=== PATIENT | male | born 1985 | race Hispanic/Latino ===

== ENCOUNTER 2020-11-04 15:25 | Inpatient (IN) | payer BC ==
--- NOTE | 2020-11-04 17:24 | RAD REPORT ---
EXAM DESCRIPTION: Jose Single View11/04/2020 5:08 pm CLINICAL HISTORY: sob COMPARISON: none FINDINGS: The lungs appear clear of acute infiltrate. The heart is normal size IMPRESSION: No acute abnormalities displayed
[2020-11-04] MEDS ORDERED: VANCOMYCIN/NS 1 gm 1 GM/250 ML BAG IVPB ONE (17:30)
[2020-11-04] MEDS ORDERED: NA CHLORIDE 0.9% 3,000 ML ONE (17:50)
[2020-11-04] MEDS ORDERED: CEFEPIME/SWI 1gm 10 ML ONE (17:50)
[2020-11-04] MEDS ORDERED: NA CHLORIDE 0.9% 500 ML ONE (17:50)
[2020-11-04 17:58] LABS: ALT/SGPT 54 U/L (12-78); AST/SGOT 73 U/L (15-37); Alkaline Phosphatase 62 U/L (45-117); BUN Blood Urea Nitrogen 15 mg/dL (7-18); Bicarbonate 25 mmol/L (21-32); Bilirubin Direct 0.5 mg/dL (0-0.2); Glucose Level 90 mg/dL (74-106); Lipase 389 U/L (73-393); Magnesium 2.9 mg/dL (1.8-2.4); NT PRO-BNP 360 pg/mL (<125); Potassium 3.7 mmol/L (3.5-5.1); Protein, Total 7.9 g/dL (6.4-8.2); Sodium Level 129 mmol/L (136-145); Troponin (Emerg Dept Use Only) < 0.02 ng/mL (0.0-0.045)
[2020-11-04] MEDS ORDERED: CEFEPIME/SWI 1gm 10 ML IVP ONE (18:00)
[2020-11-04 18:14] LABS: Protime INR 1.59
[2020-11-04 18:26] LABS: Basophils % 0.4 % (0-1.3); Hematocrit 34.1 % (39.6-49.0); Lymphocytes % 7.4 % (15.3-44.8); MPV 9.1 fL (7.6-11.3); RBC Red Blood Cell Count 3.96 M/uL (4.33-5.43)
--- NOTE | 2020-11-04 19:37 | RAD REPORT ---
EXAM DESCRIPTION: CT - Abdomen Pelvis W Contrast - 11/04/2020 7:07 pm CLINICAL HISTORY: Abdominal pain COMPARISON: none. TECHNIQUE: Computed axial tomography of the abdomen pelvis was obtained. 100 cc Isovue-300 was admin istered intravenously. Oral contrast was not requested which limits evaluation of bowel. All CT scans are performed using dose optimization technique as appropriate and may include automated exposure control or mA/KV adjustment according to patient size. FINDINGS: Fatty liver Spleen, pancreas, adrenal and kidneys appear unremarkable. There is no evidence of diverticulitis. Postsurgical changes of a ventral hernia repair 20 x 14 x 19 centimeter (cc by AP by trans} mass is present within the left anterior subcutaneous tis sues of the lower abdomen/pelvis. It contains air and fluid consistent with an abscess IMPRESSION: 20 centimeter abscess within the left anterior subcutaneous tissues of the lower abdomen /pelvis
--- NOTE | 2020-11-04 19:58 | ER ---
Nurse's Notes [facility] Name: Rohan Bey Age: 35 yrs Sex: Male : 1985 Arrival Date: 11/04/2020 Time: 15:27 Bed 13 Private MD: Landry Cohen Diagnosis: Severe sepsis without septic shock;Cutaneous abscess of abdominal wall Presentation: 11/04 15:58 Chief complaint: Patient states: Left sided abdominal pain and bloating x 1 week, jl7 denies N/V/D. Coronavirus screen: Client denies travel out of the [place] in the last 14 days. At this time, the client does not indicate any symptoms associated with coronavirus-19. Ebola Screen: No symptoms or risks identified at this time. Initial Sepsis Screen: Does the patient meet any 2 criteria? No. Patient's initial sepsis screen is negative. Does the patient have a suspected source of infection? No. Patient's initial sepsis screen is negative. Risk Assessment: Do you want to hurt yourself or someone else? Patient reports no desire to harm self or others. Onset of symptoms was October 30, 2020. 15:58 Method Of Arrival: Ambulatory [facility] 15:58 Acuity: YAW 3 jl7 Historical: - Allergies: 16:01 No Known Allergies; jl7 - Home Meds: 16:01 None [Active]; jl7 - PMHx: 16:01 None; jl7 - PSHx: 16:01 None; jl7 - Immunization history:: Adult Immunizations not up to date, Client reports having NOT received the Covid vaccine. - Social history:: Smoking status: Patient denies any tobacco usage or history of. Screenin:51 Abuse screen: Denies threats or abuse. Denies injuries from another. Nutritional ld1 screening: No deficits noted. Tuberculosis screening: No symptoms or risk factors identified. Fall Risk None identified. Assessment: 16:51 General: Appears in no apparent distress. uncomfortable, Behavior is calm, cooperative, ld1 appropriate for age. Pain: Complains of pain in left lower quadrant Pain does not radiate. Pain currently is 8 out of 10 on a pain scale. Quality of pain is described as throbbing, Pain began 2-3 days ago. Is continuous. Neuro: Level of Consciousness is awake, alert, obeys commands, Oriented to person, place, time, situation. Cardiovascular: Denies chest pain, Capillary refill < 3 seconds Patient's skin is warm and dry. Rhythm is SVT. Respiratory: Airway is patent Respiratory effort is even, unlabored, Respiratory pattern is regular, symmetrical. GI: Abdomen is distended, obese, Bowel sounds present X 4 quads. Abd is soft Abdomen is tender to palpation in left upper quadrant and left lower quadrant Reports lower abdominal pain. : No signs and/or symptoms were reported regarding the genitourinary system. EENT: No signs and/or symptoms were reported regarding the EENT system. Derm: No signs and/or symptoms reported regarding the dermatologic system. Musculoskeletal: No signs and/or symptoms reported regarding the musculoskeletal system. 18:59 Reassessment: Patient appears in no apparent distress at this time. No changes from ld1 previously documented assessment. Patient and/or family updated on plan of care and expected duration. Pain level reassessed. Patient denies pain at this time. Vital Signs: 15:58 BP 152 / 83; Pulse 142; Resp 15; Temp 99.9; Pulse Ox 98% ; Weight 122.47 kg; Height 5 bp ft. 5 in. (165.10 cm); Pain 10/10; 16:51 BP 127 / 99; Pulse 139; Resp 22; Temp 99.9(O); Pulse Ox 95% on R/A; Weight 122.4 kg; ld1 Height 5 ft. 9 in. (175.26 cm); Pain 8/10; 17:45 BP 126 / 75; Pulse 124; Resp 18; Pulse Ox 96% on R/A; ld1 18:30 BP 123 / 70; Pulse 120; Resp 24; Pulse Ox 97% on R/A; ld1 16:51 Body Mass Index 39.85 (122.40 kg, 175.26 cm) ld1 ED Course: 15:27 Patient arrived in ED. as 15:27 Landry Cohen DO is Private Physician. as 16:01 Triage completed. jl7 16:01 Arm band placed on right wrist. Patient placed in waiting room, Patient notified of jl7 wait time. 16:49 Christiane Fermin, MARY ELLEN is Primary Nurse. ld1 16:51 Patient has correct armband on for positive identification. Placed in gown. Bed in low ld1 position. Call light in reach. Side rails up X2. damper worker on. Pulse ox on. NIBP on. Door closed. Noise minimized. Warm blanket given. 16:51 No provider procedures requiring assistance completed. ld1 16:56 Elton Bland PA is PHCP. jr8 16:56 Kiet Juares MD is Attending Physician. jr8 17:08 XRAY Chest (1 view) In Process Unspecified. EDMS 17:23 Inserted saline lock: 20 gauge in right antecubital area, using aseptic technique. ld1 Blood collected. 18:17 Notified Nurse Practitioner and/or Physician Order Entry Specialist of a critical lab result(s), aa5 Lactate 2.9. 19:07 Abdomen In Process Unspecified. EDMS 19:58 Chava Heller is Hospitalizing Provider. jr8 11/05 04:20 Primary Nurse role handed off by Christiane Fermin RN mw2 07:35 Martine Haney, MARY ELLEN is Primary Nurse. tr6 11/07 07:18 Primary Nurse role handed off by Martine Haney RN eb 08:43 Michael Napoles, MARY ELLEN is Primary Nurse. bp Administered Medications: 11/04 17:32 Drug: NS 0.9% (30 ml/kg) 30 ml/kg Route: IV; Rate: bolus; Site: right antecubital; ld1 20:30 Follow up: Response: No adverse reaction; IV Status: Completed infusion; IV Intake: ld1 3600ml 17:33 Drug: Cefepime 1 grams Route: IVPB; Rate: 200 ml/hr; Infused Over: 30 mins; Site: right ld1 antecubital; 11/05 18:00 Follow up: Response: No adverse reaction; IV Status: Completed infusion; IV Intake: ld1 100ml 11/04 18:00 Drug: vancoMYCIN 1 grams Route: IVPB; Infused Over: 2 hrs; Site: right antecubital; ld1 20:00 Follow up: Response: No adverse reaction; IV Status: Completed infusion; IV Intake: ld1 250ml 11/05 19:17 Not Given (Patient Refused): morphine 4 mg IVP once; RASS on ADMIN: Combtv4, Very ld1 Agttd3, Agttd2, Rstlss1, AlertClm0, Drwsy-1, Lt Sdtn-2, Mod Sdtn-3, Dp Sdtn-4, UnArsble-5 19:17 Not Given (Patient Refused): Zofran (Ondansetron) 4 mg IVP once; over 2 minutes ld1 Intake: 11/04 20:00 IV: 250ml; Total: 250ml. ld1 20:30 IV: 3600ml; Total: 3850ml. ld1 11/05 18:00 IV: 100ml; Total: 3950ml. ld1 Outcome: 11/04 19:58 Decision to Hospitalize by Provider. jr8 11/07 15:00 Patient left the ED. eb Signatures: Dispatcher [employer] EDMS Nany Bey Audri, RN RN aa5 Elton Bland PA PA jr8 Jack Rubin, RN RN jl7 Michael Napoles, RN RN [facility], [place] 2 Rimma Boyer Christiane Fermin RN RN ld1 Martine Haney, RN RN tr6 Corrections: (The following items were deleted from the chart) 11/04 17:38 17:23 CORONAVIRUS+MR.LAB.BRZ drawn and sent. ld1 EDMS 19:07 19:02 In radiology for Abdomen W/ Con+CT.RAD.BRZ. EDMT EDMS 11/07 09:56 11/04 15:58 BP 152 / 83; Pulse 142bpm; Resp 15bpm; Pulse Ox 98%; Temp 99.9F; 122.47 kg; bp Height 5 ft. 5 in.; BMI: 44.9; Pain 10/10; jl7
--- NOTE | 2020-11-04 19:59 | EDPHYS ---
Physician Documentation [facility] Name: Rohan Bey Age: 35 yrs Sex: Male : 1985 Arrival Date: 11/04/2020 Time: 15:27 Bed 13 Private MD: Noel [facility] ED Physician Kiet Juares HPI: 11/04 20:37 This 35 yrs old Male presents to ER via Ambulatory with complaints of jr8 Abdominal Pain, Abdominal Swelling. 20:37 Onset: The symptoms/episode began/occurred gradually, 1 week(s) ago. The symptoms do jr8 not radiate. Associated signs and symptoms: Pertinent positives: constipation, fever. The symptoms are described as dull. Modifying factors: The symptoms are alleviated by nothing, the symptoms are aggravated by movement. Severity of pain: At its worst the pain was moderate in the emergency department the pain is unchanged. The patient has not experienced similar symptoms in the past. The patient has not recently seen a physician. 20:38 This is a 35-year-old male patient who came in with continued abdominal pain and jr8 swelling for 1 week. Stated that he noticed some pain on the left side of his abdomen that has increased in nature. Now having discoloration with moderate pain and swelling. Patient febrile with tachycardia and septic signs upon arrival to emergency room.. Historical: - Allergies: 16:01 No Known Allergies; jl7 - Home Meds: 16:01 None [Active]; jl7 - PMHx: 16:01 None; jl7 - PSHx: 16:01 None; jl7 - Immunization history:: Adult Immunizations not up to date, Client reports having NOT received the Covid vaccine. - Social history:: Smoking status: Patient denies any tobacco usage or history of. ROS: 20:38 Eyes: Negative for injury, pain, redness, and discharge, ENT: Negative for injury, jr8 pain, and discharge, Neck: Negative for injury, pain, and swelling, Cardiovascular: Negative for chest pain, palpitations, and edema, Respiratory: Negative for shortness of breath, cough, wheezing, and pleuritic chest pain, Back: Negative for injury and pain, MS/Extremity: Negative for injury and deformity, Skin: Negative for injury, rash, and discoloration, Neuro: Negative for headache, weakness, numbness, tingling, and seizure. 20:38 Abdomen/GI: Positive for abdominal pain, constipation, abdominal distension, Negative for nausea, vomiting, and diarrhea. Exam: 20:38 Eyes: Pupils equal round and reactive to light, extra-ocular motions intact. Lids and jr8 lashes normal. Conjunctiva and sclera are non-icteric and not injected. Cornea within normal limits. Periorbital areas with no swelling, redness, or edema. ENT: Nares patent. No nasal discharge, no septal abnormalities noted. Tympanic membranes are normal and external auditory canals are clear. Oropharynx with no redness, swelling, or masses, exudates, or evidence of obstruction, uvula midline. Mucous membranes moist. Neck: Trachea midline, no thyromegaly or masses palpated, and no cervical lymphadenopathy. Supple, full range of motion without nuchal rigidity, or vertebral point tenderness. No Meningismus. Back: No spinal tenderness. No costovertebral tenderness. Full range of motion. Skin: Warm, dry with normal turgor. Normal color with no rashes, no lesions, and no evidence of cellulitis. MS/ Extremity: Pulses equal, no cyanosis. Neurovascular intact. Full, normal range of motion. Neuro: Awake and alert, GCS 15, oriented to person, place, time, and situation. Cranial nerves II-XII grossly intact. Motor strength 5/5 in all extremities. Sensory grossly intact. 20:38 Constitutional: The patient appears alert, awake, uncomfortable. 20:38 Cardiovascular: Rate: tachycardic, Rhythm: regular, Pulses: Pulses are 2+ in right radial artery and left radial artery. Heart sounds: normal, normal S1and S2, no S3 or S4, no murmur, no rub, no gallop, Edema: is not appreciated. 20:38 Respiratory: the patient does not display signs of respiratory distress, Respirations: tachypnea, that is mild, Breath sounds: are clear throughout, no bronchial sounds, no decreased breath sounds, no rales, rhonchi, no stridor, no wheezing. 20:38 Abdomen/GI: Inspection: obese She has a large indurated region from the suprapubic midline all the way to the superior anterior iliac crest on the left side up to the mid abdomen. Erythema present with some bruising. Moderate tenderness to palpation with pitting edema, Bowel sounds: active, all quadrants, Palpation: soft, in all quadrants, mass, is not appreciated, rebound tenderness, is not appreciated, voluntary guarding, is not appreciated, involuntary guarding, is not appreciated, no appreciated organomegaly. Vital Signs: 15:58 BP 152 / 83; Pulse 142; Resp 15; Temp 99.9; Pulse Ox 98% ; Weight 122.47 kg; Height 5 bp ft. 5 in. (165.10 cm); Pain 10/10; 16:51 BP 127 / 99; Pulse 139; Resp 22; Temp 99.9(O); Pulse Ox 95% on R/A; Weight 122.4 kg; ld1 Height 5 ft. 9 in. (175.26 cm); Pain 8/10; 17:45 BP 126 / 75; Pulse 124; Resp 18; Pulse Ox 96% on R/A; ld1 18:30 BP 123 / 70; Pulse 120; Resp 24; Pulse Ox 97% on R/A; ld1 16:51 Body Mass Index 39.85 (122.40 kg, 175.26 cm) ld1 MDM: 16:57 Patient medically screened. jr8 20:49 Data reviewed: vital signs, nurses notes, lab test result(s), EKG, radiologic studies, jr8 CT scan. Data interpreted: Pulse oximetry: on room air is 97 %. Counseling: I had a detailed discussion with the patient and/or guardian regarding: the historical points, exam findings, and any diagnostic results supporting the discharge/admit diagnosis, lab results, radiology results, the need for further work-up and treatment in the hospital. ED course: Dr. Sarmiento consulted and will see patient in the morning for surgery. patient mated to medicine at this time. 11/04 16:57 Order name: Basic Metabolic Panel; Complete Time: 18:39 [facility] 11/04 16:57 Order name: CBC with Diff; Complete Time: 18:39 [facility] 11/04 16:57 Order name: LFT's; Complete Time: 18:39 [facility] 11/04 16:57 Order name: Magnesium; Complete Time: 18:39 11/04 16:57 Order name: NT PRO-BNP; Complete Time: 18:39 [facility] 11/04 16:57 Order name: PT-INR; Complete Time: 18:39 [facility] 11/04 16:57 Order name: Troponin (emerg Dept Use Only); Complete Time: 18:39 jr8 11/04 16:57 Order name: Lipase; Complete Time: 18:39 jr8 11/04 17:07 Order name: Blood Culture Adult (2) ld1 11/04 17:07 Order name: Lactate; Complete Time: 18:39 ld1 11/04 17:10 Order name: Procalcitonin; Complete Time: 18:39 ld1 11/04 20:02 Order name: SARS-COV-2 RT PCR; Complete Time: 20:16 EDMS 11/04 21:08 Order name: Lactate Sepsis 2 HR Follow-up; Complete Time: 21:32 EDMS 11/05 03:39 Order name: Lactate EDMS 11/05 03:40 Order name: CBC with Automated Diff EDMS 11/05 04:01 Order name: Manual Differential EDMS 11/05 04:18 Order name: Phosphorus EDMS 11/05 04:18 Order name: Lipid Profile EDMS 11/05 04:18 Order name: C-Reactive Protein EDMS 11/05 04:18 Order name: T4 Free EDMS 11/05 04:18 Order name: Magnesium EDMS 11/05 04:18 Order name: Thyroid Stimulating Hormone EDMS 11/05 04:18 Order name: Transferrin Sat/Iron Binding EDMS 11/05 04:18 Order name: Ferritin EDMS 11/05 04:18 Order name: Folic Acid, (Folate) EDMS 11/05 04:18 Order name: Vitamin B12 Level EDMS 11/05 06:45 Order name: Lactate Sepsis 2 HR Follow-up EDMS 11/05 12:46 Order name: Glucose, Ancillary Testing EDMS 11/06 06:58 Order name: CBC with Automated Diff EDMS 11/04 16:57 Order name: XRAY Chest (1 view); Complete Time: 18:39 jr8 11/04 16:57 Order name: EKG; Complete Time: 16:57 jr8 11/04 16:57 Order name: Cardiac monitoring; Complete Time: 17:03 jr8 11/04 16:57 Order name: EKG - Nurse/Tech; Complete Time: 17:03 jr8 11/04 16:57 Order name: IV Saline Lock; Complete Time: 17:23 jr8 11/04 16:57 Order name: Labs collected and sent; Complete Time: 17:23 jr8 11/04 16:57 Order name: O2 Per Protocol; Complete Time: 17:03 jr8 11/04 16:57 Order name: O2 Sat Monitoring; Complete Time: 17:03 jr8 11/04 19:07 Order name: Abdomen ; Complete Time: 19:41 EDMS 11/04 20:10 Order name: CONS Physician Consult EDMS 11/06 07:04 Order name: Basic Metabolic Panel EDMS 11/06 07:04 Order name: Phosphorus EDMS 11/06 07:04 Order name: Magnesium EDMS 11/06 09:28 Order name: Wound Culture EDMS 11/06 09:35 Order name: Tissue Culture EDMS 11/06 13:19 Order name: Glucose, Ancillary Testing EDMS 11/06 20:11 Order name: Vancomycin Level Trough EDMS 11/07 05:00 Order name: CBC with Automated Diff EDMS 11/07 05:02 Order name: Basic Metabolic Panel EDMS 11/07 05:02 Order name: Magnesium EDMS 11/07 05:38 Order name: Urinalysis EDMS Administered Medications: 17:32 Drug: NS 0.9% (30 ml/kg) 30 ml/kg Route: IV; Rate: bolus; Site: right antecubital; ld1 20:30 Follow up: Response: No adverse reaction; IV Status: Completed infusion; IV Intake: ld1 3600ml 17:33 Drug: Cefepime 1 grams Route: IVPB; Rate: 200 ml/hr; Infused Over: 30 mins; Site: right ld1 antecubital; 11/05 18:00 Follow up: Response: No adverse reaction; IV Status: Completed infusion; IV Intake: ld1 100ml 11/04 18:00 Drug: vancoMYCIN 1 grams Route: IVPB; Infused Over: 2 hrs; Site: right antecubital; ld1 20:00 Follow up: Response: No adverse reaction; IV Status: Completed infusion; IV Intake: ld1 250ml 11/05 19:17 Not Given (Patient Refused): morphine 4 mg IVP once; RASS on ADMIN: Combtv4, Very ld1 Agttd3, Agttd2, Rstlss1, AlertClm0, Drwsy-1, Lt Sdtn-2, Mod Sdtn-3, Dp Sdtn-4, UnArsble-5 19:17 Not Given (Patient Refused): Zofran (Ondansetron) 4 mg IVP once; over 2 minutes ld1 Disposition Summary: 11/04/20 19:58 Hospitalization Ordered Hospitalization Status: Inpatient Admission jr8 Provider: Chava Heller jr8 Condition: Fair jr8 Problem: new jr8 Symptoms: have improved jr8 Bed/Room Type: [place] [address] Location: Telemetry/MedSurg (Inpatient)(11/07/20 12:25) dw Room Assignment: 430(11/07/20 12:25) dw Diagnosis - Severe sepsis without septic shock jr8 - Cutaneous abscess of abdominal wall jr8 Forms: - Medication Reconciliation Form jr8 - SBAR form jr8 Signatures: Dispatcher [employer] EDMS Christie Abreu RN RN dw Elton Bland PA PA jr8 Karma Zhang RN RN tl1 Jack Rubin RN RN jl7 Christiane Fermin RN RN ld1 Corrections: (The following items were deleted from the chart) 11/04 17:38 17:07 CORONAVIRUS+MR.LAB.BRZ ordered. EDMS EDMS 19:07 18:41 Abdomen W/ Con+CT.RAD.BRZ ordered. EDMS EDMS 19:58 19:44 NPO ordered. 8 jr8 20:33 19:58 Telemetry/MedSurg (Inpatient) [facility] tl1 20:33 19:58 jr8 tl1 11/07 12:25 11/04 20:33 [facility] ER HOLD tl1 dw 11/07 12:25 11/04 20:33 ERHOLD- tl1 dw
--- NOTE | 2020-11-04 21:11 | P.HP ---
Certification for Inpatient Patient admitted to: Inpatient With expected LOS: <2 Midnights Patient will require the following post-hospital care: None Practitioner: I am a practitioner with admitting privileges, knowledge of patient current condition, hospital course, and medical plan of care. Services: Services provided to patient in accordance with Admission requirements found in Title 42 Section 412.3 of the Code of Federal Regulations Patient History Date of Service: 11/04/20 Reason for admission: abdominal abscess History of Present Illness: Mr. Bey is a 35 yo M who reports a few weeks of left-sided abdominal pain, bloating and irritation. Pain worse with movement, relieved with laying flat. Reports fever, anorexia. Denies nausea and vomiting. CT shows 20cm abscess within the left anterior subcutaneous tissues of lower abdomen and pelvis. WBC 13.6. H/H 11.3. Na 129, Cl 95. Lactate 2.9. Dbili 0.5, AST 73. Albumin 2.0. procal 3.5. - Past Medical/Surgical History Has patient received pneumonia vaccine in the past: No Diabetic: No Past Medical History: Patient denies medical history -: hernia repair -: knee surgery - Family History Father -: Diabetes - Social History Smoking Status: Never smoker Alcohol use: No CD- Drugs: No Caffeine use: Yes Place of Residence: Home Review of Systems 10-point ROS is otherwise unremarkable General: Fever Gastrointestinal: Abdominal Pain Physical Examination - Physical Exam General: Alert, In no apparent distress HEENT: Atraumatic, PERRLA, Mucous membr. moist/pink, EOMI, Sclerae nonicteric Neck: Supple, 2+ carotid pulse no bruit, No LAD, Without JVD or thyroid abnormality Respiratory: Clear to auscultation bilaterally, Normal air movement Cardiovascular: Normal S1 S2, Irregular heart rate/rhythm (tachycardic ) Capillary refill: <2 Seconds Gastrointestinal: Normal bowel sounds, Soft and benign, Non-distended, No ascites, No tenderness, No rebound, No guarding Musculoskeletal: No tenderness Integumentary: No rashes Neurological: Normal gait, Normal speech, Normal strength at 5/5 x4 extr, Normal tone, Normal affect Lymphatics: No axilla or inguinal lymphadenopathy - Studies Laboratory Data (last 24 hrs) 11/04/20 17:18: PT 18.4 H, INR 1.59 11/04/20 17:18: WBC 13.60 H, Hgb 11.3 L, Hct 34.1 L, Plt Count 415 H 11/04/20 17:18: Sodium 129 L, Potassium 3.7, BUN 15, Creatinine 1.02, Glucose 90, Magnesium 2.9 H, Total Bilirubin 1.0, AST 73 H, ALT 54, Alkaline Phosphatase 62, Lipase 389 Assessment and Plan - Problems (Diagnosis) (1) Abdominal abscess Current Visit: Yes Status: Acute (2) Obesity (BMI 35.0-39.9 without comorbidity) Current Visit: Yes Status: Chronic - Plan surgery consulted, plan to go to OR in the AM NPO at midnight, continue IVF hydration and IV antibiotics tylenol prn for fever anemia workup pending dietitian consulted DVt ppx Discharge Plan: Home Plan to discharge in: 48 Hours - Advance Directives Does patient have a Living Will: No Does patient have a Durable POA for Healthcare: No - Code Status/Comfort Care Code Status Assessed: Yes (full code ) Critical Care: No Time Spent Managing Pts Care (In Minutes): 70
[2020-11-05] MEDS ORDERED: ACETAMINOPHEN 500 MG TAB PO PRN (01:26)
[2020-11-05] MEDS ORDERED: NA CHLORIDE 0.9% 500 ML IV ONE (01:26)
[2020-11-05] MEDS ORDERED: ONDANSETRON 4 MG/2 ML VIAL IV PRN (01:26)
[2020-11-05] MEDS ORDERED: MORPHINE 2 MG/ML SYR IV PRN (01:26)
[2020-11-05] MEDS: NA CHLORIDE 0.9% 1,000 ML IV SCH ×3 (01:26→21:26)
[2020-11-05 03:32] LABS: Basophils % 0.2 % (0-1.3); Hematocrit 26.7 % (39.6-49.0); Lymphocytes % 9.7 % (15.3-44.8); MPV 8.3 fL (7.6-11.3); RBC Red Blood Cell Count 3.11 M/uL (4.33-5.43)
[2020-11-05 04:01] LABS: Blood Morphology Comment NOT SEEN (NOT SEEN); Platelet Estimate ADEQ
[2020-11-05] MEDS ORDERED: NA CHLORIDE 0.9% 1,000 ML ONE ×3 (04:04→17:12)
[2020-11-05 04:17] LABS: Ferritin 1985.7 ng/mL (26-388); Folic Acid, (Folate) 6.6 ng/mL (3.1-17.5); Magnesium 2.6 mg/dL (1.8-2.4); Phosphorus 2.5 mg/dL (2.5-4.9); Thyroid Stimulating Hormone 1.62 uIU/mL (0.360-3.740)
[2020-11-05] MEDS ORDERED: Pharmacy Consult 1 EA XX PRN (06:00)
[2020-11-05] MEDS: CEFEPIME 1 GM/10 ML SYR IV SCH ×3 (08:23→21:00)
[2020-11-05] MEDS ORDERED: CEFEPIME/SWI 1gm 10 ML ONE ×2 (08:43→21:28)
[2020-11-05] MEDS ORDERED: BUPIVACAINE 0.5% Inj,MDV 50 mL VIAL ONE (11:04)
[2020-11-05] MEDS ORDERED: FENTANYL CITR 100 MCG/2 ML ONE ×2 (11:05→11:48)
[2020-11-05] MEDS ORDERED: LIDOCAINE 2% MPF 5 ML VIAL ONE (11:05)
[2020-11-05] MEDS ORDERED: dexAMETHasone 10 MG/ML VIAL ONE ×2 (11:05→11:25)
[2020-11-05] MEDS ORDERED: propofoL 200 MG/20 ML VIAL IV ONE (11:05)
[2020-11-05] MEDS ORDERED: ONDANSETRON 4 MG/2 ML VIAL ONE (11:06)
[2020-11-05] MEDS ORDERED: MIDAZOLAM HCL 2 MG/2 ML INJ ONE (11:06)
[2020-11-05] MEDS ORDERED: KETOROLAC 30 MG/ML INJ ONE (11:06)
[2020-11-05] MEDS: VANCOMYCIN 2 GM in NA CHLORIDE 0.9% 500 ML IVPB SCH ×2 (11:28→21:00)
[2020-11-05] MEDS: BUPIVACAINE 0.25% PF 30 ML VIAL ONE (11:28)
[2020-11-05] MEDS ORDERED: NS 0.9% VIAL 10 ML ONE (11:29)
--- NOTE | 2020-11-05 12:01 | P.OP ---
Poultry Helper: Teresa AREVALO Preoperative diagnosis: Abdominal Wall Abscess Postoperative diagnosis: same--Necrotizing Primary procedure: I and D and Debridement Necrotizing Abscess Abd Wall and Pulse Irrigation Anesthesia: General Estimated blood loss: min Specimen: pus and tissue Findings: as above Complications: None Transferred to: Recovery Room Condition: Good
[2020-11-05] MEDS: NA CHLORIDE 0.9% 1,000 ML ONE ×2 (12:08→12:25)
[2020-11-05] MEDS ORDERED: HYDROMORPHONE HCL 1 MG/ML INJ IV PRN (12:12)
[2020-11-05] MEDS ORDERED: HYDROCODONE/APAP 7.5/325 MG TAB PO PRN (12:12)
--- NOTE | 2020-11-05 13:36 | OP ---
Date of Procedure: 11/05/2020 Surgeon: Eulogio Sarmiento MD Tour Guide: IRINA Butler. Preoperative Diagnosis: Abdominal wall abscess. Postoperative Diagnosis: Abdominal wall abscess with necrotizing component. Procedure Performed: Incision, drainage and debridement of necrotizing abdominal wall abscess with p ulse irrigation. Estimated Blood Loss: Minimal. Specimen: Pus and necrotic tissue. Finding: As above. Anesthesia: General. Disposition: The patient tolerated the procedure in stable condition and taken to Recovery in good g eneral condition. Please note, the patient had a nerve block done postprocedure for postop pain control. Procedure In Detail: The patient was brought to the OR and placed in supine position. General anest hesia begun. The patient was prepped and draped in the usual sterile fashion. Then, Marcaine 0.5% i nfiltrated over the most fluctuant part of the abscess. Then, a #20 blade was used to make an approx imately a 10 cm incision. Subcutaneous tissue divided and deep to the subcutaneous tissue anterior t o the peritoneal surface, there was a large abscess cavity encountered with air and pus present, whic h was aspirated. Pulse irrigation was utilized. Cultures were done. The necrotic tissue was debrid ed. Wound was irrigated with 2 L of saline. First 2 L had 10 mL of Betadine in it and then second 2 L and no Betadine in it and the pulse irrigation loosened up a lot of necrotic tissue, which was rem marcin and debrided. Bleeding was controlled with cautery and then wet-to-dry, normal saline dressing changes applied. Three Kerlix were tied to each other to pack the entire volume of wound that we cou ld. After the sterile dressing was applied, the patient had a block done and then the patient was ta bruno to Recovery in good general condition. Please note, the patient will have a planned return to [facility] OR tomorrow for dressing change and possible secondary closure of the wound over drains. I will ev aluate that tomorrow based on the patient's condition. /MODL Voice ID: [id number] Report ID: [id number]
--- NOTE | 2020-11-05 15:58 | PREOPCON ---
Date of Consultation: 11/04/2020 Reason For Consultation: Abdominal wall abscess. History Of Present Illness: The patient is a 35-year-old gentleman who comes in with couple of weeks history of left-sided abdominal pain associated with bloating and irritation, relieved when lying fl at, worse with movement. He has had fever, anorexia. No nausea or vomiting. He recovered from COVI D at the end of September and since then, he has had this developing. No sore throat, runny nose, cough, headaches, or dizziness. No chest pain. Review of Systems: Otherwise unremarkable. Past Medical History: Negative. Past Surgical History: Hernia repair and knee surgery. Social History: The patient does not smoke or drink alcohol. Family History: Significant for father with diabetes. Physical Examination: Vital Signs: Significant for heart rate of 112, temperature is 99.6, otherwise, they are stable. General: He is awake, alert, oriented x3. Head and Neck: Cranial nerves 2 through 12 grossly within normal limits. No neck masses. No JVD. Throat clear. Neck is supple. Chest: Clear. Heart: S1, S2. Abdomen: Soft. Distended on the left side. There is fullness on the left side from above the umbil icus to below, approximately three-quarter of the abdominal wall where there appears to be fluctuance present. There is mild erythema. There is tenderness. There is warmth. Extremity: Adequately perfused. Nontender. Neuro: Nonfocal. Laboratory Data: White count on admission was 13.6, with a left shift. Band are 14. He had a CT of the abdomen and pelvis that was done, which showed 20 x 14 x 9 cm abscess in the left anterior subcu taneous tissue that contains air and fluid consistent with an abscess. Assessment: Abscess, left abdominal wall. Plan: The patient is following the septic protocol, aggressive fluid hydration, broad-spectrum antib iotics, and then the patient will go to the OR for incision, drainage, and debridement. The patient understands the risks, benefits, and alternatives and agrees to procedure. /MODL Voice ID: [id number] Report ID: [id number]
--- NOTE | 2020-11-05 19:43 | P.PN ---
Subjective Date of Service: 11/05/20 Chief Complaint: abdominal abscess Status post incision and debridement of necrotizing abdominal wall abscess. Patient denies any complain of the moment. Patient reports occasional nonproductive cough. He denies shortness of breath. Physical Examination - Vital Signs Temperature: 99.9 F Blood Pressure: 115/76 Pulse: 96 Respirations: 18 Pulse Ox (%): 97 - Physical Exam General: Alert, In no apparent distress, Oriented x3, Obese HEENT: Mucous membr. moist/pink Neck: JVD not distended Respiratory: Other (Nonlabored breathing) Cardiovascular: No edema, Regular rate/rhythm, Normal S1 S2 Gastrointestinal: Soft and benign, Non-distended (Dressed surgical wound on the anterior) Musculoskeletal: No swelling, No tenderness Integumentary: No rashes, No erythema Neurological: Normal strength at 5/5 x4 extr Assessment And Plan - Current Problems (Diagnosis) (1) COVID-19 virus infection Current Visit: Yes Status: Acute (2) Abdominal abscess Current Visit: Yes Status: Acute (3) Obesity (BMI 35.0-39.9 without comorbidity) Current Visit: Yes Status: Chronic - Plan Continue IV cefepime and vancomycin. Status post I and D. Follow deep tissue wound culture. Monitor CBC and blood chemistry. Watch for hyperglycemia and optimize blood sugar levels. Patient is asymptomatic from COVID 19.
[2020-11-05] MEDS ORDERED: VANCOMYCIN 1 GM/VIAL ONE (21:27)
[2020-11-05] MEDS ORDERED: NA CHLORIDE 0.9% 250 ML ONE (21:27)
[2020-11-06] MEDS ORDERED: NA CHLORIDE 0.9% 1,000 ML ONE (04:35)
[2020-11-06 06:52] LABS: Basophils % 0.4 % (0-1.3); Hematocrit 27.3 % (39.6-49.0); Lymphocytes % 8.8 % (15.3-44.8); MPV 8.6 fL (7.6-11.3); RBC Red Blood Cell Count 3.12 M/uL (4.33-5.43)
[2020-11-06 07:02] LABS: BUN Blood Urea Nitrogen 16 mg/dL (7-18); Bicarbonate 25 mmol/L (21-32); Glucose Level 184 mg/dL (74-106); Magnesium 2.7 mg/dL (1.8-2.4); Phosphorus 2.6 mg/dL (2.5-4.9); Sodium Level 138 mmol/L (136-145)
[2020-11-06] MEDS: NA CHLORIDE 0.9% 1,000 ML IV SCH ×2 (07:26→17:26)
[2020-11-06] MEDS: BUPIVACAINE 0.25% PF 30 ML VIAL ONE (07:52)
[2020-11-06] MEDS ORDERED: BUPIVACAINE 0.5% PF 10 ML VIAL ONE (08:14)
[2020-11-06] MEDS: VANCOMYCIN 2 GM in NA CHLORIDE 0.9% 500 ML IVPB SCH ×2 (09:00→20:55)
[2020-11-06] MEDS: CEFEPIME/SWI 1gm 10 ML IV SCH ×2 (09:00→20:55)
[2020-11-06] MEDS ORDERED: FENTANYL CITR 100 MCG/2 ML ONE ×2 (09:06→09:43)
[2020-11-06] MEDS ORDERED: propofoL 200 MG/20 ML VIAL IV ONE (09:07)
[2020-11-06] MEDS ORDERED: LIDOCAINE 2% MPF 5 ML VIAL ONE (09:08)
[2020-11-06] MEDS ORDERED: MIDAZOLAM HCL 2 MG/2 ML INJ ONE (09:08)
[2020-11-06] MEDS ORDERED: ONDANSETRON 4 MG/2 ML VIAL ONE (09:11)
--- NOTE | 2020-11-06 10:08 | P.OP ---
Custodial Services Manager: Anjum ROJAS Preoperative diagnosis: Infected abdominal wound Postoperative diagnosis: same Primary procedure: I and D and Debridement Necrotizing Abscess Abd Wall and Pulse Irrigation Secondary procedure: Secondary closure of the wound over MARTITA x 2 Anesthesia: General Estimated blood loss: min Specimen: Infected tissue Findings: as above Complications: None Drain(s): MARTITA drain Transferred to: Recovery Room Condition: Good
--- NOTE | 2020-11-06 11:35 | OP ---
Date of Procedure: 11/06/2020 Surgeon: Eulogio Sarmiento MD Blower Insulator: Anjum Sykes, neurosurgical physician assistant, certified. Preoperative Diagnosis: Infected wound of abdomen. Postoperative Diagnosis: Infected wound of abdomen. Procedure: Incision and drainage and debridement of infected abdominal wound with pulse irrigation a nd secondary closure of the wound over MARTITA drains x2 Estimated Blood Loss: Minimal. Specimen: Minimal amount of necrotic tissue. Finding: As above. Anesthesia: General. Complications: None. Drains: MARTITA #10 flat x2. Disposition: The patient tolerated the procedure in stable condition and taken to recovery in good g eneral condition. Procedure In Detail: The patient was brought to the OR and placed in supine position. General anest hesia was begun. Then, the entire packing which was 3 Kerlix rolls was removed in the operating room and accounted. It was taken out in 1 piece. Then, the patient was prepped and draped in usual ster ile fashion and then 3 L of saline with Betadine was used for pulse irrigation of the wound. There w as a minimal amount of necrotic fibrin present which was debrided sharply. Bleeding was controlled w ith cautery and then 3 more L of just plain saline was used to pulse irrigate the wound as well. At this time, I noted that the patient's wound was infected severely, but the infection has been under c ontrol with his fever coming down, pulse rate normalizing, white count normalizing. The redness and edema around the wound markedly improved, almost normalized, therefore I opted to do a secondary clos ure and this was done first by placing 2 Dewey-Meyers 10 flat drain in the wound, 1 medially and 1 l aterally securing with 3-0 nylon and then 0 Vicryl was used to reapproximate the deep subcutaneous ti ssues and 0 chromic was used to reapproximate the superficial subcutaneous tissue, and rehana were u sed to loosely close the skin. Then, sterile dressing was applied. The patient was awakened and raegan en to Recovery in good general condition. /MODL Voice ID: [id number] Report ID: [id number]
--- NOTE | 2020-11-06 14:06 | P.PN ---
Subjective Date of Service: 11/06/20 Chief Complaint: abdominal abscess Patient sent to the OR for repeat debridement and irrigation today. Drains left in. He denies shortness of breath. Physical Examination - Vital Signs Temperature: 98.9 F Blood Pressure: 127/56 Pulse: 93 Respirations: 18 Pulse Ox (%): 97 - Physical Exam General: In no apparent distress, Obese Neck: JVD not distended Respiratory: Other (Nonlabored breathing) Cardiovascular: Regular rate/rhythm, Normal S1 S2 Gastrointestinal: Soft and benign, Non-distended, Other (Dressed anterior abdominal surgical wound with wound drains.) Musculoskeletal: No swelling Neurological: Normal strength at 5/5 x4 extr Assessment And Plan - Current Problems (Diagnosis) (1) COVID-19 virus infection Current Visit: Yes Status: Acute (2) Abdominal abscess Current Visit: Yes Status: Acute (3) Obesity (BMI 35.0-39.9 without comorbidity) Current Visit: Yes Status: Chronic - Plan Deep tissue wound culture showing Gram negative rods on Gram stain Continue IV cefepime and vancomycin. Status post I and D., debridement and irrigation. Follow deep tissue wound culture. Monitor CBC and blood chemistry. Watch for hyperglycemia and optimize blood sugar levels. Patient is asymptomatic from COVID 19. General surgery is following. Dr. Sarmiento recommend monitoring over the weekend.
[2020-11-06] MEDS ORDERED: CEFEPIME/SWI 1gm 10 ML ONE (20:48)
[2020-11-06] MEDS ORDERED: VANCOMYCIN 1 GM/VIAL ONE (20:49)
[2020-11-07] MEDS: NA CHLORIDE 0.9% 1,000 ML IV SCH ×4 (03:26→23:26)
[2020-11-07 04:47] LABS: Absolute Lymphocytes (CBC) 1.2 K/uL (0.7-4.9); Basophils % 0.6 % (0-1.3); Hematocrit 25.3 % (39.6-49.0); MPV 8.8 fL (7.6-11.3)
[2020-11-07 04:57] LABS: BUN Blood Urea Nitrogen 19 mg/dL (7-18); Bicarbonate 26 mmol/L (21-32); Glucose Level 155 mg/dL (74-106); Magnesium 2.2 mg/dL (1.8-2.4); Potassium 3.8 mmol/L (3.5-5.1); Sodium Level 142 mmol/L (136-145)
[2020-11-07 05:25] LABS: Urine Appearance CLEAR (Clear); Urine Blood NEGATIVE (Negative); Urine Color YELLOW (Yellow); Urine Glucose NEGATIVE (Negative); Urine Protein NEGATIVE (Negative); Urine Specific Gravity 1.025 (1.005-1.030)
[2020-11-07 05:38] LABS: Urine Bilirubin NEGATIVE (Negative); Urine Microscopic Reflex NO UMIC
[2020-11-07] MEDS ORDERED: POTASSIUM CL SA 10 MEQ TAB PO ONE ×2 (05:43→06:34)
[2020-11-07] MEDS ORDERED: NA CHLORIDE 0.9% 1,000 ML ONE (06:38)
[2020-11-07 08:44] VITALS: BMI 44.9
[2020-11-07] MEDS: CEFEPIME/SWI 1gm 10 ML IV SCH ×2 (09:00→20:12)
[2020-11-07] MEDS: VANCOMYCIN 2 GM in NA CHLORIDE 0.9% 500 ML IVPB SCH ×2 (09:00→20:12)
[2020-11-07] MEDS ORDERED: NA CHLORIDE 0.9% 100 ML ONE (09:43)
[2020-11-07] MEDS ORDERED: CEFEPIME/SWI 1gm 10 ML ONE (09:43)
--- NOTE | 2020-11-07 10:57 | PN ---
Date of Progress Note: 11/07/2020 Subjective: The patient is awake, alert, no complaint, tolerating diet. Objective: Vital Signs: Stable. Afebrile. Laboratory Data: White count is normal. There is still a left shift. MARTITA's put out slightly over 12 0 each shift. Dressing is clean, dry, and intact. Assessment: Status post incision and drainage, debridement of necrotizing abscess in the left abdome n with secondary closure of the wound with pulse irrigation. Recommendation: Cultures reviewed, sensitive to cefepime. He is on vancomycin and we can continue t hat for the time being and then upon discharge, we can convert to oral antibiotics based on the cultu re reports. Clinically, he is doing very well. We encouraged physical therapy to get him out of bed and ambulate, incentive spirometry, DVT prophylaxis. Continue drainage for the time being. /MODL Voice ID: [id number] Report ID: [id number]
--- NOTE | 2020-11-07 13:13 | P.PN ---
Subjective Date of Service: 11/07/20 Chief Complaint: abdominal abscess Patient has no complain. Noted drop in hemoglobin. No recorded fever. Physical Examination - Vital Signs Temperature: 98.3 F Blood Pressure: 122/87 Pulse: 91 Respirations: 18 Pulse Ox (%): 99 - Physical Exam General: In no apparent distress, Oriented x3, Obese Neck: JVD not distended Respiratory: Clear to auscultation bilaterally, Normal air movement Cardiovascular: No edema, Regular rate/rhythm, Normal S1 S2 Gastrointestinal: Soft and benign, Non-distended, Other (Dressed midline surgical wound with drains in place.) Musculoskeletal: No swelling Integumentary: No rashes Neurological: Normal strength at 5/5 x4 extr Assessment And Plan - Current Problems (Diagnosis) (1) COVID-19 virus infection Current Visit: Yes Status: Acute (2) Abdominal abscess Current Visit: Yes Status: Acute (3) Obesity (BMI 35.0-39.9 without comorbidity) Current Visit: Yes Status: Chronic - Plan Deep tissue wound culture showing E. coli. There is possibility of polymicrobial growth Continue IV cefepime and vancomycin. Status post I and D., debridement and irrigation. Follow deep tissue wound culture. Monitor CBC and blood chemistry. Watch for hyperglycemia and optimize blood sugar levels. Patient is asymptomatic from COVID 19. General surgery is following. Dr. Sarmiento recommend monitoring over the weekend.
[2020-11-07] MEDS ORDERED: VANCOMYCIN 1 GM/VIAL ONE (20:30)
[2020-11-07] MEDS ORDERED: NA CHLORIDE 0.9% 500 ML ONE (20:31)
[2020-11-08] MEDS: NA CHLORIDE 0.9% 1,000 ML IV SCH ×2 (04:44→19:26)
[2020-11-08 04:45] LABS: Basophils % 0.5 % (0-1.3); Hematocrit 25.8 % (39.6-49.0); Lymphocytes % 21.7 % (15.3-44.8); MPV 8.4 fL (7.6-11.3); RBC Red Blood Cell Count 2.96 M/uL (4.33-5.43)
[2020-11-08 04:51] LABS: BUN Blood Urea Nitrogen 14 mg/dL (7-18); Bicarbonate 25 mmol/L (21-32); Glucose Level 93 mg/dL (74-106); Potassium 3.9 mmol/L (3.5-5.1); Sodium Level 141 mmol/L (136-145)
[2020-11-08] MEDS ORDERED: POTASSIUM CL SA 10 MEQ TAB PO ONE ×2 (06:56→14:15)
[2020-11-08] MEDS: VANCOMYCIN 2 GM in NA CHLORIDE 0.9% 500 ML IVPB SCH ×2 (09:00→20:01)
[2020-11-08] MEDS: CEFEPIME/SWI 1gm 10 ML IV SCH ×2 (09:22→20:00)
--- NOTE | 2020-11-08 09:28 | PN ---
Date of Progress Note: 11/08/2020 This is a telephonic note, I discussed the patient's condition with the nurse in detail with all of t he clinical data. History: The patient is awake and alert. He could ambulate in place with physical therapy yesterday . Pain is under control. His bowels are stable. He is afebrile. His white count is normal. His w ound is clean, dry, and intact. MARTITA drain is putting out 90 mL per shift in 1 MARTITA and between 20 mL an d 40 mL in the other MARTITA. Assessment: Status post incision and debridement of a necrotizing abdominal wound x2 with secondary closure of the wound. Recommendations: Continue IV antibiotics, MARTITA drain, incentive spirometry, physical therapy, DVT prop hylaxis. Patient is clinically stable and slowly improving. /MODL Voice ID: [id number] Report ID: [id number]
--- NOTE | 2020-11-08 14:41 | P.PN ---
Subjective Date of Service: 11/08/20 Chief Complaint: abdominal abscess Patient has no complain. No recorded fever. Drains with purulent discharge. Physical Examination - Vital Signs Temperature: 97.7 F Blood Pressure: 140/81 Pulse: 101 Respirations: 18 Pulse Ox (%): 97 - Physical Exam General: Alert, In no apparent distress Respiratory: Clear to auscultation bilaterally, Normal air movement Cardiovascular: No edema, Regular rate/rhythm, Abnormal S3 Gastrointestinal: Soft and benign, Non-distended, Other (Midline surgical wound drains with purulent discharge.) Musculoskeletal: No swelling Neurological: Normal strength at 5/5 x4 extr Assessment And Plan - Current Problems (Diagnosis) (1) COVID-19 virus infection Current Visit: Yes Status: Acute (2) Abdominal abscess Current Visit: Yes Status: Acute (3) Obesity (BMI 35.0-39.9 without comorbidity) Current Visit: Yes Status: Chronic - Plan Status post I and D.,debridement and irrigation. Deep tissue wound culture showing E. coli. There is possibility of polymicrobial growth Continue IV cefepime and vancomycin. Monitor CBC and blood chemistry. Patient is asymptomatic from COVID 19. General surgery is following.
[2020-11-09 05:35] LABS: Absolute Lymphocytes (CBC) 1.9 K/uL (0.7-4.9); Basophils % 0.9 % (0-1.3); Hematocrit 24.2 % (39.6-49.0); Lymphocytes % 26.4 % (15.3-44.8); MPV 7.8 fL (7.6-11.3); RBC Red Blood Cell Count 2.79 M/uL (4.33-5.43)
[2020-11-09 05:54] LABS: BUN Blood Urea Nitrogen 9 mg/dL (7-18); Bicarbonate 27 mmol/L (21-32); Glucose Level 109 mg/dL (74-106); Potassium 3.7 mmol/L (3.5-5.1); Sodium Level 140 mmol/L (136-145)
[2020-11-09] MEDS ORDERED: POTASSIUM 25 MEQ EFFERV TAB PO ONE (06:43)
[2020-11-09] MEDS: CEFEPIME/SWI 1gm 10 ML IV SCH (09:02)
[2020-11-09] MEDS: VANCOMYCIN 2 GM in NA CHLORIDE 0.9% 500 ML IVPB SCH (09:04)
[2020-11-09] MEDS: NA CHLORIDE 0.9% 1,000 ML IV SCH (09:07)
--- NOTE | 2020-11-09 14:44 | PN ---
Date of Progress Note: 11/09/2020 Subjective: The patient is awake, alert. No complaints. Objective: Vital Signs: Stable, afebrile. Extremities: Drains put out over 200 mL of milky tannish fluid perhaps lymphatics mixed in with sero us fluid. No significant change. The wound is clean, dry, and intact. Abdomen: Soft. Laboratory Data: White count is normal. There is no left shift anymore. Cultures reviewed, had E c leo and Enterococcus faecalis growing, both sensitive to Cipro. Assessment: Status post incision and drainage and debridement of left abdominal wall abscess. Recommendations: Continue to drain and antibiotics at this time. The patient can be discharged home . He just needs drain care, Cipro, Flagyl for antibiotics, and [facility] my clinic upon discharge. /MODL Voice ID: [id number] Report ID: [id number]
--- NOTE | 2020-11-09 16:33 | P.DS ---
Admission Date: 11/04/20 Discharge Date: 11/09/20 Disposition: ROUTINE DISCHARGE Discharge Condition: FAIR Reason for Admission: abdominal abscess - Problems (1) COVID-19 virus infection Current Visit: Yes Status: Acute (2) Abdominal abscess Current Visit: Yes Status: Acute (3) Obesity (BMI 35.0-39.9 without comorbidity) Current Visit: Yes Status: Chronic Brief History of Present Illness: 35 yo M presented with a few weeks of left-sided abdominal pain, bloating and irritation. Pain worse with movement, relieved with laying flat. He reported fever. CT showed 20cm abscess within the left anterior subcutaneous tissues of lower abdomen and pelvis. WBC 13.6. H/H 11.3. Na 129, Cl 95. Lactate 2.9. Dbili 0.5, AST 73. Albumin 2.0. procal 3.5. Patient admitted for further management. Hospital Course: Patient admitted to the medical floor and started on broad-spectrum antibiotics- IV cefepime and vancomycin. He was seen and evaluated by general surgery Dr. Sarmiento who performed incision and drainage, debridement x2. [address] Deep tissue wound culture grew Enterococcus and E. coli, all organisms sensitive to Levaquin. Patient was treated with several days of IV antibiotics. Dr. Sarmiento cleared patient for discharge today. Patient will follow with him in the [facility] within a week. He is prescribed ciprofloxacin and Flagyl. Vital Signs/Physical Exam: Temp Pulse Resp BP Pulse Ox 97.6 F 99 H 18 134/75 97 11/09/20 12:00 11/09/20 12:00 11/09/20 12:00 11/09/20 12:00 11/09/20 12:00 General: In no apparent distress, Oriented x3 Neck: JVD not distended Respiratory: Clear to auscultation bilaterally, Normal air movement Cardiovascular: No edema, Regular rate/rhythm, Normal S1 S2 Gastrointestinal: Soft and benign, Non-distended, Other (Made line abdominal surgical wound with 2 drains draining milky discharge.) Musculoskeletal: No swelling Integumentary: No rashes Neurological: Normal strength at 5/5 x4 extr Laboratory Data at Discharge: WBC 7.10 K/uL (4.3-10.9) D 11/09/20 05:03 Hgb 8.2 g/dL (13.6-17.9) L 11/09/20 05:03 Hct 24.2 % (39.6-49.0) L 11/09/20 05:03 Plt Count 334 K/uL (152-406) 11/09/20 05:03 PT 18.4 SECONDS (9.5-12.5) H 11/04/20 17:18 INR 1.59 11/04/20 17:18 Sodium 140 mmol/L (136-145) 11/09/20 05:03 Potassium 3.7 mmol/L (3.5-5.1) 11/09/20 05:03 BUN 9 mg/dL (7-18) 11/09/20 05:03 Creatinine 0.41 mg/dL (0.55-1.3) L 11/09/20 05:03 Glucose 109 mg/dL (74-106) H 11/09/20 05:03 Phosphorus 2.6 mg/dL (2.5-4.9) 11/06/20 06:08 Magnesium 2.2 mg/dL (1.8-2.4) D 11/07/20 03:44 Total Bilirubin 1.0 mg/dL (0.2-1.0) 11/04/20 17:18 AST 73 U/L (15-37) H 11/04/20 17:18 ALT 54 U/L (12-78) 11/04/20 17:18 Alkaline Phosphatase 62 U/L (45-117) 11/04/20 17:18 Triglycerides 170 mg/dL (<150) H 11/05/20 03:09 Cholesterol 101 mg/dL (<200) 11/05/20 03:09 HDL Cholesterol 10 mg/dL (40-60) L 11/05/20 03:09 Cholesterol/HDL Ratio 10.10 11/05/20 03:09 Lipase 389 U/L (73-393) 11/04/20 17:18 Home Medications: Ascorbic Acid [Vitamin C] 1,000 mg PO TID #90 tablet 11/09/20 Cholecalciferol (Vitamin D3) [Vitamin D3] 4,000 unit PO DAILY #60 capsule 11/09/20 Ciprofloxacin HCl [Cipro 500 MG Tablet] 500 mg PO BID #20 tab 11/09/20 Hydrocodone 7.5/APAP 325 [[place] 7.5/325 mg*] 1 tab PO Q4H PRN #20 tab 11/09/20 Zinc Sulfate [Zinc Sulfate*] 220 mg PO DAILY #30 cap 11/09/20 metroNIDAZOLE [Flagyl] 500 mg PO TID #30 tablet 11/09/20 New Medications: Ciprofloxacin HCl [Cipro 500 MG Tablet] 500 mg PO BID #20 tab metroNIDAZOLE [Flagyl] 500 mg PO TID #30 tablet Hydrocodone 7.5/APAP 325 [[place] 7.5/325 mg*] 1 tab PO Q4H PRN #20 tab PRN Reason: Pain Scale 8-10 (Severe) Ascorbic Acid [Vitamin C] 1,000 mg PO TID #90 tablet Cholecalciferol (Vitamin D3) [Vitamin D3] 4,000 unit PO DAILY #60 capsule Zinc Sulfate [Zinc Sulfate*] 220 mg PO DAILY #30 cap Physician Discharge Instructions: Surgical drain care. Diet: AHA Activity: Ad french Followup: Landry Cohen, DO [Primary Care Provider] - Eulogio Sarmiento MD [ACTIVE - CAN ADMIT] - 1-2 Weeks ([facility] in my clinic) Time spent managing pt's care (in minutes): 42
[2020-11-09 16:36] VITALS: BP 129/72; TEMP 97.8
[2020-11-09 19:34] VITALS: O2SAT 98
== END 2020-11-09 19:25 | disposition home or self-care (01) | DRG 579 ==
LOC: ER 15:25 → ERHOLD 20:14 → 4TH 11-07 13:56
PROVIDERS: ADMIT Internal Medicine; ATTEND Internal Medicine
PROC: 0JD80ZZ Extraction of Abdomen Subcutaneous Tissue and Fascia, Open Approach (ICD-10-PCS; principal; 2020-11-05 11:45)
PROC: 0JD80ZZ Extraction of Abdomen Subcutaneous Tissue and Fascia, Open Approach (ICD-10-PCS; 2020-11-06)
DX: L02.211 Cutaneous abscess of abdominal wall (principal); U07.1 COVID-19; Z68.41 Body mass index [BMI] 40.0-44.9, adult; B96.20 Unspecified Escherichia coli [E. coli] as the cause of diseases classified elsewhere; B95.2 Enterococcus as the cause of diseases classified elsewhere; E66.9 Obesity, unspecified
CPT/HCPCS: 36415; 71045; 74177; 80048; 80061; 80076; 80202; 81003; 82607; 82728; 82746; 82947; 83540; 83605; 83690; 83735; 83880; 84100; 84145; 84439; 84443; 84466; 84484; 85025; 85610; 86140; 87040; 87070; 87075; 87077; 87176; 87186; 87205; 88304; 93005; 94010; 94760; 96365; 96366; 96367; 97112; 97116; 97161; 99284; J0692; J1100; J2250; J2405; J2704; J3010; J3370; J7030; J7040; J7050; U0003

== ENCOUNTER 2021-10-30 18:50 | Emergency (ER) | payer BC ==
--- OUTSIDE RECORDS SUMMARY | 2021-10-30 18:53 | XMS REPORT | Continuity of Care Document ---
:1985 Author Organization [facility] t Address [address] [place] [address] [address] Care Team Providers Name Role Phone Will Bowers Attending Clinician Unavailable Problems This patient has no known problems. Allergies, Adverse Reactions, Alerts This patient has no known allergies or adverse reactions. Medications This patient has no known medications. Procedures This patient has no known procedures. Encounters Start End Encounter Admission Attending Care Care Encounter Source Date/Time Date/Time Type Type Clinicians Facility Department ID 2021-04-21 Outpatient JENY Bowers [facility] [id number] Common 14:17:35 Will [id number] [facility] [place] This patient has no known results.
[2021-10-30 19:19] LABS: Urine Blood 3+ (Negative); Urine Glucose 1+ (Negative); Urine Protein 2+ (Negative); Urine Specific Gravity >=1.030 (1.005-1.030); Urine pH 5.5 (5.0-7.0)
[2021-10-30] MEDS ORDERED: KETOROLAC 30 MG/ML INJ ONE (19:43)
[2021-10-30] MEDS ORDERED: NA CHLORIDE 0.9% 1,000 ML ONE (19:48)
[2021-10-30 20:04] LABS: Absolute Lymphocytes (CBC) 1.9 K/uL (0.7-4.9); Hematocrit 40.8 % (39.6-49.0); Lymphocytes % 13.5 % (15.3-44.8); MCV 86.1 fL (80-100); MPV 8.8 fL (7.6-11.3); RBC Red Blood Cell Count 4.74 M/uL (4.33-5.43)
[2021-10-30 20:15] LABS: Potassium 4.2 mmol/L (3.5-5.1)
--- NOTE | 2021-10-30 20:26 | RAD REPORT ---
EXAM DESCRIPTION: CT - Stone Protocol - 10/30/2021 8:15 pm CLINICAL HISTORY: Flank pain. flankp ain COMPARISON: Abdomen Pelvis W Contrast dated 11/04/2020 TECHNIQUE: Axial images were obtained without oral or IV contrast. Lack of contrast limits solid org an and vascular assessment. The [id number] spans the entirety of the system partially obscuring uppermost abdomen and lung bases. Coronal reformatted images were obtained and reviewed. All CT scans are performed using dose optimization technique as appropriate and may include automated exposure control or mA/KV adjustment according to patient size. FINDINGS: The lower lung rojas are clear. Mild diffuse fatty liver.The spleen is normal in size. The pancreas and adrenal glands are normal. No pathologic lymphadenopathy in the abdomen or pelvis. 4 mm stone is seen distal right ureter resulting in mild right hydronephrosis and hydroureter. Small calculus is present inferior calyx right kidney. No left-sided stone or hydronephrosis. No bowel obstruction, free air, free fluid or abscess. Moderate inflammatory changes with focal herni a seen left lower quadrant abdominal wall.The appendix is not identified as a discrete structure, how ever, no secondary findings of appendicitis are identified. No significant bony abnormality. IMPRESSION: 4 mm stone distal right ureter resulting in mild right hydronephrosis and hydroureter. Additional punctate right renal calculus.
[2021-10-30] MEDS ORDERED: TAMSULOSIN 0.4 MG SR CAP ONE (20:55)
[2021-10-30] MEDS ORDERED: MAGNESIUM SULFATE 1 gm IVPB 1 GM/100 ML BAG IV ONE (20:55)
[2021-10-30 20:56] LABS: Urine Bacteria <20 /HPF (<20); Urine RBC >50 /HPF (None Seen)
--- NOTE | 2021-10-30 21:45 | ER ---
Nurse's Notes [facility] Name: Rohan Bey Age: 36 yrs Sex: Male : 1985 Arrival Date: 10/30/2021 Time: 18:52 Bed 2 Private MD: Diagnosis: Calculus of kidney with calculus of ureter Presentation: 10/30 19:04 Chief complaint: Patient states: blood in urine x 1 right flank pain radiates to groin. kl Coronavirus screen: Vaccine status: Patient reports being unvaccinated. Client denies travel out of the [place] in the last 14 days. Ebola Screen: Patient negative for fever greater than or equal to 101.5 degrees Fahrenheit, and additional compatible Ebola Virus Disease symptoms. Initial Sepsis Screen: Does the patient meet any 2 criteria? No. Patient's initial sepsis screen is negative. Does the patient have a suspected source of infection? No. Patient's initial sepsis screen is negative. Risk Assessment: Do you want to hurt yourself or someone else? Patient reports no desire to harm self or others. Onset of symptoms was October 30, 2021 at 14:00. 19:04 Method Of Arrival: Ambulatory 19:04 Acuity: YAW 3 kl Triage Assessment: 19:07 General: Appears uncomfortable. Pain: Complains of pain in right flank right groin Pain kl currently is 6 out of 10 on a pain scale. : Reports report blood in urine. Historical: - Allergies: 19:08 No Known Allergies; kl - Home Meds: 19:08 None [Active]; kl - PMHx: 19:08 None; kl - PSHx: 19:08 hernia surgery; kl - Immunization history:: Adult Immunizations not up to date. - Social history:: Smoking status: Patient denies any tobacco usage or history of. Screenin:49 Abuse screen: Denies threats or abuse. Denies injuries from another. Nutritional tw5 screening: No deficits noted. Tuberculosis screening: No symptoms or risk factors identified. Fall Risk None identified. Assessment: 19:49 General: Appears in no apparent distress. uncomfortable, Behavior is calm, cooperative, tw5 appropriate for age. Pain: Complains of pain in right low back Pain currently is 5 out of 10 on a pain scale. GI: Bowel sounds present X 4 quads. Abd is soft and non tender X 4 quads. 21:59 Reassessment: Patient appears in no apparent distress at this time. as6 Vital Signs: 19:04 BP 168 / 87; Pulse 101; Resp 20; Temp 98.2(TE); Pulse Ox 100% on R/A; Weight 117.93 kg; kl Height 5 ft. 5 in. (165.10 cm); Pain 6/10; 19:49 BP 162 / 90; Pulse 95; Resp 18; Pulse Ox 100% ; Pain 5/10; tw5 20:53 BP 146 / 87; Pulse 96; Resp 18 S; Pulse Ox 100% on R/A; as6 21:59 BP 138 / 69; Pulse 92; Resp 18 S; Pulse Ox 100% on R/A; as6 19:04 Body Mass Index 43.27 (117.93 kg, 165.10 cm) ED Course: 18:52 Patient arrived in ED. as 19:07 Triage completed. 19:14 Tamia Palomo FNP-C [facility]. kb 19:14 Suman Waddell MD is Attending Physician. kb 19:15 Jose Luis Stanton, MARY ELLEN is Primary Nurse. as6 19:49 Awaiting lab results, Awaiting CT Scan. tw5 19:49 Patient has correct armband on for positive identification. Bed in low position. Call tw5 light in reach. Side rails up X 1. Door closed. Noise minimized. Moved to private room. Warm blanket given. Verbal reassurance given. 19:49 Initial lab(s) drawn, by me, sent to lab. Inserted saline lock: 14 gauge 20 gauge in tw5 left antecubital area, using aseptic technique. Blood collected. 19:51 Basic Metabolic Panel Sent. tw5 19:51 CBC with Diff Sent. tw5 20:17 CT Stone Protocol In Process Unspecified. EDMS 21:58 No provider procedures requiring assistance completed. IV discontinued, intact, as6 bleeding controlled, No redness/swelling at site. Pressure dressing applied. 21:59 Arm band placed on. as6 Administered Medications: 19:51 Drug: Ketorolac 30 mg Route: IVP; Site: left antecubital; tw5 22:00 Follow up: Response: No adverse reaction as6 19:51 Drug: NS 0.9% 1000 ml Route: IV; Rate: 1 bolus; Site: left antecubital; tw5 22:00 Follow up: Response: No adverse reaction; IV Status: Infusion continued; IV Intake: as6 1000ml 20:53 Drug: Magnesium Sulfate 1 grams Route: IVPB; Infused Over: 1 hrs; Site: left as6 antecubital; 22:00 Follow up: Response: No adverse reaction; IV Status: Infusion continued; IV Intake: as6 100ml 20:53 Drug: Flomax (tamsulosin) 0.4 mg Route: PO; as6 22:00 Follow up: Response: No adverse reaction as6 Medication: 19:49 VIS not applicable for this client. tw5 Intake: 22:00 IV: 1000ml; Total: 1000ml. as6 22:00 IV: 100ml; Total: 1100ml. as6 Outcome: 21:45 Discharge ordered by . kb 21:59 Discharged to home ambulatory, with family. as6 21:59 Condition: stable 21:59 Discharge instructions given to patient, family, Instructed on discharge instructions, follow up and referral plans. medication usage, Demonstrated understanding of instructions, follow-up care, medications, Prescriptions given X 4. 22:00 Patient left the ED. as6 Signatures: Dispatcher [employer] Tamia Vann, SUSAN OCONNOR-Cleo Duckworth, RN Nany Guerra Tiffany tw5 Jose Luis Stanton RN RN as6
--- NOTE | 2021-10-30 21:45 | EDPHYS ---
Physician Documentation [facility] [place], [place] Name: Rohan Bey Age: 36 yrs Sex: Male : 1985 Arrival Date: 10/30/2021 Time: 18:52 Bed 2 Private MD: ED Physician Suman Waddell HPI: 10/30 22:51 This 36 yrs old Male presents to ER via Ambulatory with complaints of Urinary kb Problem, Possible Kidney Stone. 22:51 The patient complains of pain in the right flank. The pain radiates to the right lower kb quadrant. Onset: The symptoms/episode began/occurred today. Modifying factors: The symptoms are alleviated by nothing. the symptoms are aggravated by nothing. Associated signs and symptoms: Pertinent positives: hematuria, Pertinent negatives: diarrhea, dizziness, dysuria, fever, urinary frequency, headache, nausea, pain radiating to the lower extremities, vomiting. Severity of pain: At its worst the pain was moderate in the emergency department the pain is unchanged. The patient has not experienced similar symptoms in the past. The patient has not recently seen a physician. Patient reports right flank pain that radiates around to her right groin that started today. Had 1 episode of hematuria prior to arrival.. Historical: - Allergies: 19:08 No Known Allergies; kl - Home Meds: 19:08 None [Active]; kl - PMHx: 19:08 None; kl - PSHx: 19:08 hernia surgery; kl - Immunization history:: Adult Immunizations not up to date. - Social history:: Smoking status: Patient denies any tobacco usage or history of. ROS: 22:50 Constitutional: Negative for fever, chills, and weight loss. kb 22:50 : Positive for flank pain, hematuria. 22:50 All other systems are negative. Exam: 22:50 Constitutional: This is a well developed, well nourished patient who is awake, alert, kb and in no acute distress. Head/Face: Normocephalic, atraumatic. ENT: Moist Mucous membranes Cardiovascular: Regular rate and rhythm with a normal S1 and S2. No gallops, murmurs, or rubs. No pulse deficits. Respiratory: Respirations even and unlabored. No increased work of breathing. Talking in full sentences Abdomen/GI: Soft, non-tender. No distention Skin: Warm, dry with normal turgor. Normal color. MS/ Extremity: Pulses equal, no cyanosis. Neurovascular intact. Full, normal range of motion. Neuro: Awake and alert, GCS 15, oriented to person, place, time, and situation. Moves all extremities. Normal gait. Psych: Awake, alert, with orientation to person, place and time. Behavior, mood, and affect are within normal limits. 22:50 Back: CVA tenderness, that is mild, is noted on the right. Vital Signs: 19:04 BP 168 / 87; Pulse 101; Resp 20; Temp 98.2(TE); Pulse Ox 100% on R/A; Weight 117.93 kg; kl Height 5 ft. 5 in. (165.10 cm); Pain 6/10; 19:49 BP 162 / 90; Pulse 95; Resp 18; Pulse Ox 100% ; Pain 5/10; tw5 20:53 BP 146 / 87; Pulse 96; Resp 18 S; Pulse Ox 100% on R/A; as6 21:59 BP 138 / 69; Pulse 92; Resp 18 S; Pulse Ox 100% on R/A; as6 19:04 Body Mass Index 43.27 (117.93 kg, 165.10 cm) kl MDM: 19:14 Patient medically screened. kb 22:49 Data reviewed: vital signs, nurses notes. Data interpreted: Pulse oximetry: on room air kb is 100 %. Interpretation: normal. Counseling: I had a detailed discussion with the patient and/or guardian regarding: the historical points, exam findings, and any diagnostic results supporting the discharge/admit diagnosis, lab results, radiology results, the need for outpatient follow up, a urologist, to return to the emergency department if symptoms worsen or persist or if there are any questions or concerns that arise at home. ED course: Pain resolved after treatment.. 10/30 19:19 Order name: Urine Dipstick-Ancillary; Complete Time: 19:20 EDMS 10/30 19:24 Order name: CBC with Diff; Complete Time: 20:12 kb 10/30 19:24 Order name: Basic Metabolic Panel; Complete Time: 20:37 kb 10/30 19:24 Order name: CT Stone Protocol; Complete Time: 20:37 kb 10/30 20:13 Order name: Urine Microscopic Only; Complete Time: 21:01 kb 10/30 19:24 Order name: IV Start; Complete Time: 19:50 kb Administered Medications: 19:51 Drug: Ketorolac 30 mg Route: IVP; Site: left antecubital; tw5 22:00 Follow up: Response: No adverse reaction as6 19:51 Drug: NS 0.9% 1000 ml Route: IV; Rate: 1 bolus; Site: left antecubital; tw5 22:00 Follow up: Response: No adverse reaction; IV Status: Infusion continued; IV Intake: as6 1000ml 20:53 Drug: Magnesium Sulfate 1 grams Route: IVPB; Infused Over: 1 hrs; Site: left as6 antecubital; 22:00 Follow up: Response: No adverse reaction; IV Status: Infusion continued; IV Intake: as6 100ml 20:53 Drug: Flomax (tamsulosin) 0.4 mg Route: PO; as6 22:00 Follow up: Response: No adverse reaction as6 Disposition: 10/31 06:18 Co-signature as Attending Physician, Suman Waddell MD. [email or web address] Disposition Summary: 10/30/21 21:45 Discharge Ordered Location: Home kb Condition: Stable kb Diagnosis - Calculus of kidney with calculus of ureter kb Followup: kb - With: Emergency Department - When: As needed - Reason: Worsening of condition Followup: kb - With: Private Physician - When: 2 - 3 days - Reason: Recheck today's complaints, Continuance of care, Re-evaluation by your physician Discharge Instructions: - Discharge Summary Sheet kb - Kidney Stones, [id number] kb - Dietary Guidelines to Help Prevent Kidney Stones kb Forms: - Medication Reconciliation Form kb - Thank You Letter kb - Antibiotic Education kb - Prescription Opioid Use kb Prescriptions: - Flomax 0.4 mg Oral capsule - take 1 capsule by ORAL route once daily 1/2 hour following the same meal each kb day; 10 capsule; Refills: 0, Product Selection Permitted - Zofran 4 mg Oral Tablet - take 1 tablet by ORAL route every 6 hours As needed; 20 tablet; Refills: 0, Product Selection Permitted - Cipro 500 mg Oral Tablet - take 1 tablet by ORAL route every 12 hours for 7 days; 14 tablet; Refills: 0, Product Selection Permitted - Diclofenac Sodium 75 mg Oral tablet,delayed release (DR/EC) - take 1 tablet by ORAL route 2 times per day As needed; 30 tablet; Refills: 0, kb Product Selection Permitted Signatures: Dispatcher [employer] Tamia Vann, Cleo Burgess, RN RN Suman Booth MD MD [email or web address] Martine Alves tw5 Jose Luis Stanton RN RN as6
[2021-10-30 23:18] VITALS: TEMP 98.2; O2SAT 100
[2021-10-30 23:26] VITALS: BP 138/69
== END 2021-10-30 22:00 | disposition home or self-care (01) ==
LOC: ER 18:50
DX: N20.2 Calculus of kidney with calculus of ureter (principal)
CPT/HCPCS: 96365; 96361; 85025; 80048; 36415; 76377; 74176; 96375; 99284; J3475; J7030; 81003; 81015